=== PATIENT | male | born 2000 | race Caucasian/White ===

== ENCOUNTER 2023-03-25 14:41 | Emergency (ER) | payer BC ==
[2023-03-25] MEDS ORDERED: Lidocaine 1% 5 ML VIAL INJECT ONE (14:54)
[2023-03-25] MEDS ORDERED: Diphtheria,Pertussis(Acell),Tetanus Vaccine 0.5 ML Syringe IM ONE (14:54)
== END 2023-03-25 15:53 | disposition home or self-care (01) ==
LOC: MW.ED 14:41
DX: S61.012A Laceration without foreign body of left thumb without damage to nail, initial encounter (principal); W26.8XXA Contact with other sharp object(s), not elsewhere classified, initial encounter
CPT/HCPCS: 12001; 99282; 99283; J3490

== ENCOUNTER 2023-04-04 10:22 | Emergency (ER) | payer BC | END 2023-04-04 10:55 | disposition left against medical advice (07) | LOC: MW.ED 10:22 | DX: S61.012D Laceration without foreign body of left thumb without damage to nail, subsequent encounter (principal); Z48.02 Encounter for removal of sutures | CPT/HCPCS: 99281 ==

== ENCOUNTER 2024-03-15 21:11 | Emergency (ER) | payer BC | END 2024-03-15 22:47 | disposition home or self-care (01) | LOC: MW.ED 21:11 | DX: S67.190A Crushing injury of right index finger, initial encounter (principal); F17.210 Nicotine dependence, cigarettes, uncomplicated; W27.8XXA Contact with other nonpowered hand tool, initial encounter | CPT/HCPCS: 73140-26-F6; 73140-F6; 99283 ==

== ENCOUNTER 2024-09-05 03:02 | Emergency (ER) | payer OTHER, BC ==
[2024-09-05] MEDS ORDERED: Sodium Chloride 0.9% 10 ML Syringe FLUSH PRN (03:18)
[2024-09-05] MEDS ORDERED: Sodium Chloride 0.9% 2.5 ML Syringe FLUSH PRN (03:18)
[2024-09-05 03:25] LABS: BASOPHILS ABSOLUTE AUTO 0.06 K/uL (0.00-0.20); BASOPHILS PERCENT AUTO 0.6 % (0.0-1.0); EOSINOPHILS ABSOLUTE AUTO 0.31 K/uL (0.00-0.45); EOSINOPHILS PERCENT AUTO 3.0 % (0.0-6.0); IMMATURE GRAN ABSOLUTE AUTO 0.04 K/uL (0.00-0.05); IMMATURE GRAN PERCENT AUTO 0.4 % (0.0-0.4); LYMPHOCYTES ABSOLUTE AUTO 3.47 K/uL (1.00-4.80); LYMPHOCYTES PERCENT AUTO 33.6 % (24.0-44.0); MEAN PLATELET VOLUME 10.0 fL (9.4-12.4); MONOCYTES ABSOLUTE AUTO 0.95 K/uL (0.00-0.80); MONOCYTES PERCENT AUTO 9.2 % (0.0-8.0); NEUTROPHILS ABSOLUTE AUTO 5.49 K/uL (1.80-7.70); NEUTROPHILS PERCENT AUTO 53.2 % (41.0-71.0); NRBC ABSOLUTE 0.00 K/uL (0.00-0.02); NRBC PERCENT 0.0 /100WBC (0.0-0.2); PLATELET COUNT,PLT 257 K/uL (150-400); RED BLOOD CELL COUNT 4.61 M/uL (4.52-5.90); WHITE BLOOD CELL COUNT,WBC 10.32 K/uL (3.9-11.3)
[2024-09-05 03:38] LABS: INR 1.04 (0.86-1.11)
[2024-09-05] MEDS: Iopamidol 755 Mg/ML 100 ML Bottle IVPUSH ONE (03:42)
[2024-09-05 03:48] LABS: A/G RATIO 1.3 (0.9-1.6); ALANINE AMINOTRANSFERASE,ALT 26.0 IU/L (14-63); ASPARTATE AMNIOTRANSFERASE,AST 18.0 IU/L (15-37); BILIRUBIN TOTAL 0.5 mg/dL (0.2-1.0); BLOOD UREA NITROGEN,BUN 17.0 mg/dL (7.0-18.0); CARBON DIOXIDE,CO2 25.0 mmol/L (21.0-32.0); CHLORIDE,CL 106.0 mmol/L (98-107); CREATININE 1.2 mg/dL (0.8-1.3); EST CRCL DRUG DOSING (CG) 113.22 mL/min; ETHANOL BLOOD MEDICAL 132.0 mg/dL; GLUCOSE RANDOM 117.0 mg/dL (74-106); POTASSIUM,K 3.7 mmol/L (3.5-5.1); PROTEIN TOTAL,TP 7.4 g/dL (6.4-8.2); SODIUM,NA 142.0 mmol/L (136-148)
[2024-09-05] MEDS: Ondansetron 4 MG/2 ML SDV IVPUSH ONE (03:51)
[2024-09-05 04:00] LABS: ESTIMATED GFR 88.0 mL/min (>60)
== END 2024-09-05 06:05 ==
LOC: MW.ED 03:02
DX: S22.039A Unspecified fracture of third thoracic vertebra, initial encounter for closed fracture (principal); S01.81XA Laceration without foreign body of other part of head, initial encounter; S09.90XA Unspecified injury of head, initial encounter; V87.7XXA Person injured in collision between other specified motor vehicles (traffic), initial encounter
CPT/HCPCS: 12015; 36415; 70450; 71260; 72125; 74177; 80053; 80307; 85025; 85610; 96374; 96375; 99285; J2270; J2405; Q9967